=== PATIENT | male | born 1995 | race Caucasian/White ===

== ENCOUNTER → 2016-04-18 | Outpatient (CLI) | payer OTHER, MEDICARE, MEDICAID ==
[2016-04-18 09:49] LABS: BASO % 0.8 % (0.0-1.0); EOS % 0.6 % (0.0-3.0); LARGE UNSTAINED CELL # 0.1 K/mm3 (0.0-0.4); LARGE UNSTAINED CELL % 3.3 % (0.0-4.0); LYMPH % 23.4 % (24.0-44.0); MEAN CORPUSCULAR HEMOGLOBIN 32.2 pg (27.0-33.0); MEAN CORPUSCULAR HGB CONC 31.1 g/dl (32.0-36.5); MEAN CORPUSCULAR VOLUME 103.6 fl (80.0-96.0); MONO # 0.3 K/mm3 (0.0-0.8); MONO % 5.8 % (0.0-5.0); NEUTROPHILS # 2.8 K/mm3 (1.8-7.7); NEUTROPHILS % 66.1 % (36.0-66.0); PLATELET COUNT, AUTOMATED 284 k/mm3 (150-450); RED CELL DISTRIBUTION WIDTH 17.1 % (11.5-14.5); WHITE BLOOD COUNT 4.3 K/mm3 (4.0-10.0)
[2016-04-18 10:22] LABS: ALBUMIN 4.1 GM/DL (3.2-5.2); ANION GAP 9 MEQ/L (8-16); BLOOD UREA NITROGEN 21 MG/DL (7-18); CALCIUM LEVEL 9.1 MG/DL (8.5-10.1); CARBON DIOXIDE LEVEL 26 MEQ/L (21-32); CHLORIDE LEVEL 108 MEQ/L (98-107); CREATININE FOR GFR 1.22 MG/DL (0.70-1.30); GLOMERULAR FILTRATION RATE > 60.0 (>60); GLUCOSE, FASTING 79 MG/DL (70-105); MAGNESIUM LEVEL 1.8 MG/DL (1.8-2.4); PHOSPHORUS LEVEL 2.2 MG/DL (2.5-4.9); POTASSIUM SERUM 3.9 MEQ/L (3.5-5.1); SODIUM LEVEL 143 MEQ/L (136-145)
== END ==
LOC: M LAB 09:04
PROVIDERS: ATTEND Internal Medicine Nephrology
DX: Z94.0 Kidney transplant status (principal)

== ENCOUNTER → 2018-04-01 | Outpatient (REF) | payer OTHER | LOC: M LAB REF 16:49 | PROVIDERS: ATTEND Internal Medicine Nephrology | DX: Z94.0 Kidney transplant status (principal) ==

== ENCOUNTER → 2018-07-08 | Outpatient (REF) | payer OTHER | LOC: M LAB REF 13:13 | PROVIDERS: ATTEND Internal Medicine Nephrology | DX: Z94.0 Kidney transplant status (principal) ==

== ENCOUNTER → 2018-10-31 | Outpatient (REF) | payer MEDICARE, OTHER, MEDICAID | LOC: M LAB REF 13:21 | PROVIDERS: ATTEND Internal Medicine Nephrology | DX: Z94.0 Kidney transplant status (principal) ==

== ENCOUNTER → 2019-03-20 | Outpatient (REF) | payer MEDICARE, MEDICAID ==
[2019-03-20 14:31] LABS: ALBUMIN 4.1 GM/DL (3.2-5.2); BLOOD UREA NITROGEN 29 MG/DL (7-18); CALCIUM LEVEL 10.6 MG/DL (8.5-10.1); CARBON DIOXIDE LEVEL 25 MEQ/L (21-32); CHLORIDE LEVEL 109 MEQ/L (98-107); CREATININE FOR GFR 1.15 MG/DL (0.70-1.30); GLOMERULAR FILTRATION RATE > 60.0 (>60); GLUCOSE, FASTING 87 MG/DL (70-100); PHOSPHORUS LEVEL 3.9 MG/DL (2.5-4.9); POTASSIUM SERUM 4.1 MEQ/L (3.5-5.1); SODIUM LEVEL 140 MEQ/L (136-145)
== END ==
LOC: M LAB REF 13:49
PROVIDERS: ATTEND Internal Medicine Nephrology
DX: T86.12 Kidney transplant failure (principal)

== ENCOUNTER → 2019-08-07 | Outpatient (REF) | payer MEDICARE, MEDICAID | LOC: M LAB REF 16:26 | PROVIDERS: ATTEND Internal Medicine Nephrology | DX: Z94.0 Kidney transplant status (principal) ==

== ENCOUNTER → 2019-08-26 | Outpatient (CLI) | payer MEDICARE, MEDICAID ==
[~2019-08-26] MED LIST: ISOVUE-370 76% 100ML VIAL As Ordered ONE
--- NOTE | 2019-08-26 17:05 | REP ---
CT UROGRAPHY: CT STUDY OF THE ABDOMEN AND PELVIS WITH PRE- AND DUAL-PHASE POSTCONTRAST IMAGING. HISTORY: Hematuria. No comparison CT study. The patient gives a history of renal transplant times two. CT CONTRAST DOSE: 100 mL of intravenous Isovue-[address] FINDINGS: Preliminary digital compatibility test engineer radiograph demonstrates a single metallic screw in each proximal femur. There are surgical clips in the left iliac soft tissues. Bowel gas pattern is normal. On axial CT images, the lung bases are clear. The liver and the spleen are normal in size, homogeneous in texture. Normal adrenal glands are seen bilaterally. There is marked renal cortical atrophy of the [place] kidneys bilaterally with several simple cysts affecting each kidney. No retroperitoneal mass or adenopathy is observed. No abnormalities noted in the pancreas or the gallbladder. Small and large bowel loops are unremarkable. Normal appendix is seen in the right lower quadrant. There is a severely atrophic old right iliac fossa renal transplant noted predominately fat replaced without hydronephrosis. In the left iliac fossa, there is a functioning renal transplant kidney with intact cortical medullary junction and no hydronephrosis. No abnormal fluid collection is seen. Prostate, seminal vesicles, and urinary bladder are unremarkable. No bladder mass lesion is observed. No urinary tract calculus is seen. No vascular abnormality. Delayed scan images show no filling defect in the urinary bladder or upper tract collecting system of the functioning left renal transplant. No bony destructive lesion is seen. IMPRESSION: Intact appearing transplant kidney in the left iliac fossa. 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 [place] kidneys are severely atrophic as well with multiple small cysts. There is no evidence of bladder mass or urinary tract calculus. Electronically Signed by Obi Guzman MD 08/26/2019 05:23 P
== END ==
LOC: M RAD 14:57
PROVIDERS: ATTEND Internal Medicine Nephrology
DX: R31.9 Hematuria, unspecified (principal)
CPT/HCPCS: 74178; Q9967

== ENCOUNTER → 2019-10-15 | Outpatient (REF) | payer MEDICARE, MEDICAID | LOC: M LAB REF 12:28 | PROVIDERS: ATTEND Internal Medicine Nephrology | DX: Z94.0 Kidney transplant status (principal) ==

== ENCOUNTER → 2020-01-04 | Outpatient (REF) | payer MEDICARE, MEDICAID | LOC: M LAB REF 16:57 | PROVIDERS: ATTEND Internal Medicine Nephrology | DX: Z94.0 Kidney transplant status (principal) ==

== ENCOUNTER → 2020-04-11 | Outpatient (REF) | payer MEDICARE, MEDICAID | LOC: M LAB REF 16:50 | PROVIDERS: ATTEND Internal Medicine Nephrology | DX: Z94.0 Kidney transplant status (principal) ==

== ENCOUNTER → 2020-07-15 | Outpatient (REF) | payer MEDICARE, MEDICAID | LOC: M LAB REF 16:52 | PROVIDERS: ATTEND Internal Medicine Nephrology | DX: Z94.0 Kidney transplant status (principal) ==

== ENCOUNTER → 2020-10-21 | Outpatient (REF) | payer MEDICARE, MEDICAID | LOC: M LAB REF 13:01 | PROVIDERS: ATTEND Internal Medicine Nephrology | DX: Z94.0 Kidney transplant status (principal) ==

== ENCOUNTER → 2021-06-13 | Outpatient (REF) | payer MEDICARE, MEDICAID | LOC: M LAB REF 16:57 | PROVIDERS: ATTEND Internal Medicine Nephrology | DX: Z94.0 Kidney transplant status (principal) ==

== ENCOUNTER → 2021-10-06 | Outpatient (REF) | payer BC, MEDICARE, MEDICAID | LOC: M LAB REF 16:50 | PROVIDERS: ATTEND Internal Medicine Nephrology | DX: Z94.0 Kidney transplant status (principal) ==

== ENCOUNTER → 2022-01-08 | Outpatient (REF) | payer BC, MEDICARE, MEDICAID | LOC: M LAB REF 17:36 | PROVIDERS: ATTEND Internal Medicine Nephrology | DX: Z94.0 Kidney transplant status (principal) ==

== ENCOUNTER → 2022-08-09 | Outpatient (REF) | payer BC, MEDICARE, MEDICAID | LOC: M LAB REF 16:47 | PROVIDERS: ATTEND Internal Medicine Nephrology | DX: Z94.0 Kidney transplant status (principal) ==

== ENCOUNTER → 2023-04-19 | Outpatient (REF) | payer BC, MEDICARE, MEDICAID | LOC: M LAB REF 17:46 | PROVIDERS: ATTEND Internal Medicine Nephrology | DX: Z94.0 Kidney transplant status (principal) ==

== ENCOUNTER → 2023-10-18 | Outpatient (REF) | payer MEDICARE, MEDICAID, BC | LOC: M LAB REF 15:19 | PROVIDERS: ATTEND Surgery | DX: D48.5 Neoplasm of uncertain behavior of skin (principal) ==

== ENCOUNTER → 2023-11-08 | Outpatient (REF) | payer BC, MEDICARE, MEDICAID | LOC: M LAB REF 17:02 | PROVIDERS: ATTEND Internal Medicine Nephrology | DX: Z94.0 Kidney transplant status (principal) ==